=== PATIENT | female | born 1980 | race Caucasian/White ===

== ENCOUNTER → 2016-05-08 | Outpatient (REF) | payer OTHER | END | disposition home or self-care (01) | LOC: M LAB REF 17:11 | PROVIDERS: ATTEND Obstetrics & Gynecology | DX: O10.012 Pre-existing essential hypertension complicating pregnancy, second trimester (principal); Z36 Encounter for antenatal screening of mother; Z3A.00 Weeks of gestation of pregnancy not specified ==

== ENCOUNTER → 2016-05-09 | Outpatient (CLI) | payer OTHER ==
--- NOTE | 2016-05-09 13:45 | REP ---
Clinical: Anatomical evaluation - twin . Comparison: None . Findings: Examination demonstrates diamniotic monochorionic . The placenta is identified posteriorly and grade zero without evidence for placenta previa or abruption. Cervix measures 3.2 cm in length with a closed internal os. Amniotic fluid volume is normal. Gestational age by LMP 18 weeks 2 days with BEN 10/08/2016. Twin A: Fetus identified in cephalic presentation along the maternal right side. motion is appreciated. FHR equals 150 beats per minute. BPD 3.9 cm 17 weeks 5 days HC 14.4 cm 17 weeks 4 days AC 12.2 cm 17 weeks 6 days FL 2.7 cm 18 weeks 2 days HL 2.6 cm 18 weeks 2 days Estimated weight 219 grams (35th percentile). Anatomical assessment demonstrates normal structures including cranium, cavum, facial features, lungs, diaphragm, stomach, cord insertion/three-vessel cord, kidneys/bladder, and extremities. Suboptimal evaluation of the cord plexus, posterior fossa, heart/ventricular outflow tracts and spine noted. Twin B: Fetus identified in cephalic presentation along the maternal left side. motion is appreciated. FHR equals 153 beats per minute. BPD 3.9 cm 17 weeks 6 days HC 14.8 cm 17 weeks 6 days AC 12.5 cm 18 weeks 1 day FL 2.7 cm 18 weeks 2 days HL 2.5 cm 17 weeks 6 days Estimated weight 226 grams ( 40th percentile). Anatomical assessment demonstrates normal structures including cranium, choroid plexus, cavum, cerebellum/posterior fossa, facial features, lungs, diaphragm, stomach, cord insertion/three-vessel cord, and kidneys/bladder. Suboptimal evaluation of the heart/ventricular outflow tracts, spine and extremities noted. Impression: Diamniotic monochorionic twin gestation demonstrating appropriate and concordant growth. Anatomical limitations as described above may warrant followup. Signed by Dejan Galindo MD 05/09/2016 01:36 P
== END ==
LOC: M RAD 12:30
PROVIDERS: ATTEND Obstetrics & Gynecology
DX: Z36 Encounter for antenatal screening of mother (principal); Z3A.17 17 weeks gestation of pregnancy

== ENCOUNTER → 2016-05-29 | Outpatient (CLI) | payer OTHER ==
--- NOTE | 2016-05-29 15:58 | REP ---
TWIN OB ULTRASOUND: Real-time sonographic of gravid uterus is performed utilized transabdominal and endovaginal technique and demonstrates living diamniotic monochorionic twin gestational with estimated gestational age 21 weeks 1 day based on LMP with EDC 10/08/2016. There is concordant growth of both twins. Placenta is posterior and grade 1 with no previa or abruption. Cervix measures 2.5 to 2.8 cm in length transvaginally. Fetus A: BPD 51 mm = 21 weeks 3 days, 59th percentile HC 186 mm = 21 weeks 0 days, 45th percentile AC 168 mm = 21 weeks 6 days, 65th percentile Femur length 37 mm = 21 weeks 5 days, 64th percentile HC/AC ratio 1.11. Estimated weight 441 grams, 66th percentile. heart rate 144 beats per minute. SEEN/GROSSLY UNREMARKABLE Lateral ventricles Yes Posterior fossa Yes Upper lip No Four-chamber heart Yes LVOT Yes RVOT Yes Stomach Yes Cord insertion Yes Three vessel cord Yes Kidneys Yes Bladder Yes Spine No position: Breech on the maternal right side. Amniotic fluid: Appears within normal limits with the deepest pocket of fluid around twin A 3.4 cm. Fetus B: BPD 48 mm = 20 weeks 4 days, 36th percentile HC 183 mm = 20 weeks 5 days, 38th percentile AC 168 mm = 21 weeks 5 days, 64th percentile Femur length 35 mm = 20 weeks 6 days, 45th percentile HC/AC ratio 1.09. Estimated weight 412 grams, 52nd percentile. heart rate 157 beats per minute. position: Breech on the maternal left side. Amniotic fluid: Appears within normal limits with the deepest pocket of fluid around twin B 3.5 cm. SEEN/GROSSLY UNREMARKABLE Lateral ventricles Yes Posterior fossa Yes Upper lip No Four-chamber heart No LVOT No RVOT No Stomach Yes Cord insertion Yes Three vessel cord Yes Kidneys Yes Bladder Yes Spine Yes IMPRESSION: Living intrauterine diamniotic monochorionic twin gestation with appropriate concordant growth as discussed in detail above. Signed by Tom Painting MD 05/29/2016 04:19 P
== END ==
LOC: M RAD 11:17
PROVIDERS: ATTEND Specialist
DX: Z34.82 Encounter for supervision of other normal pregnancy, second trimester (principal)

== ENCOUNTER 2016-06-15 18:28 | Observation (INO) | payer OTHER ==
[~2016-06-15] VITALS: Ht 162.6 cm; Wt 101.0 kg
[2016-06-15] MEDS: SERTRALINE 100 MG TAB PO SCH
[2016-06-15 20:18] LABS: BASO % 0.1 % (0.0-1.0); EOS # 0.1 K/mm3 (0.0-0.50); EOS % 1.1 % (0.0-3.0); LARGE UNSTAINED CELL # 0.3 K/mm3 (0.0-0.4); LARGE UNSTAINED CELL % 2.2 % (0.0-4.0); LYMPH # 2.1 K/mm3 (1.5-4.5); MEAN CORPUSCULAR HEMOGLOBIN 27.1 pg (27.0-33.0); MEAN CORPUSCULAR HGB CONC 32.2 g/dl (32.0-36.5); MEAN CORPUSCULAR VOLUME 84.2 fl (80.0-96.0); MONO # 0.4 K/mm3 (0.0-0.8); MONO % 3.5 % (0.0-5.0); NEUTROPHILS # 8.6 K/mm3 (1.8-7.7); NEUTROPHILS % 75.1 % (36.0-66.0); PLATELET COUNT, AUTOMATED 326 k/mm3 (150-450); RED CELL DISTRIBUTION WIDTH 14.1 % (11.5-14.5); WHITE BLOOD COUNT 11.4 K/mm3 (4.0-10.0)
[2016-06-15 20:29] LABS: INR 0.99
[2016-06-15] MEDS ORDERED: FOLIC ACID 1 MG TAB PO SCH (21:00)
--- NOTE | 2016-06-15 22:00 | REPUSA ---
OBSTETRICAL ULTRASOUND INDICATION: OB screening. FINDINGS: Real-time ultrasound imaging of the twin is noted. The is diamniotic/mo nochorionic in nature. The placenta is anterior, and appears grade 0. Amniotic fluid volume appears grossly within normal limits. Normal movement, breathing movements and tone are not ed. heart rate for fetus A measures 141 bpm. heart rate for fetus B measures 155 bpm. IMPRESSION: 1. Twin A biophysical profile measures 8/8. 2. Twin B biophysical profile measures 8/8.
[2016-06-15] MEDS ORDERED: PRENTAB13 PO (22:31)
[2016-06-15] MEDS ORDERED: FOLI1TAB2 PO (22:31)
[2016-06-15] MEDS ORDERED: ZOLO100T PO (22:31)
[2016-06-15] MEDS ORDERED: IRON50TA PO (22:32)
[2016-06-15] MEDS: BETAMETHASONE SOLUSPAN 6MG/ML INJ 5ML (J0702) IM SCH (23:13)
[2016-06-16 07:44] VITALS: BP 108/53
[2016-06-16] MEDS: FERROUS SULFATE 325MG TAB PO SCH ×2 (09:48→20:15)
[2016-06-16] MEDS: FOLIC ACID 1 MG TAB PO SCH (09:48)
[2016-06-16] MEDS: PRENATAL VITAMIN TAB PO SCH (09:48)
[2016-06-16 09:50] VITALS: BP 90/53
[2016-06-16] MEDS: ACETAMINOPHEN 500 MG TAB PO PRN ×2 (10:21→20:27)
[2016-06-16 16:00] VITALS: BP 112/57
[2016-06-16] MEDS: DOCUSATE SODIUM 100 MG CAP PO SCH ×2 (16:18→20:15)
[2016-06-16 18:16] VITALS: BP 105/54
[2016-06-16 20:15] VITALS: BP 112/58
[2016-06-16] MEDS: SERTRALINE 100 MG TAB PO SCH (20:15)
[2016-06-16] MEDS: BETAMETHASONE SOLUSPAN 6MG/ML INJ 5ML (J0702) IM SCH (22:09)
[2016-06-16 22:20] VITALS: BP 120/56
[2016-06-17 00:10] VITALS: BP 100/48
[2016-06-17 02:10] VITALS: BP 106/53
[2016-06-17 04:55] VITALS: BP 107/53
[2016-06-17 06:00] VITALS: BP 100/51
[2016-06-17] MEDS: DOCUSATE SODIUM 100 MG CAP PO SCH (08:06)
[2016-06-17] MEDS: PRENATAL VITAMIN TAB PO SCH (08:06)
[2016-06-17] MEDS: FERROUS SULFATE 325MG TAB PO SCH (08:07)
[2016-06-17] MEDS: FOLIC ACID 1 MG TAB PO SCH (08:07)
[2016-06-17] MEDS: ACETAMINOPHEN 500 MG TAB PO PRN (08:21)
[2016-06-17 10:00] VITALS: BP 119/58
[2016-06-17] MEDS ORDERED: ACET50TA PO (10:17)
--- NOTE | 2016-06-17 10:38 | DSES ---
DATE OF ADMISSION: 06/15/2016 DATE OF DISCHARGE: 06/17/2016 Emiliana is a 36-year-old 5, para 3-0-1-3 at to 23 and 6/7 weeks gestation with a mono/ Di twin gestation. She was admitted to labor and delivery for an episode of mild bleeding felt to be a chronic placental abruption. Her labs returned normal results. She had a white count of 11.4, hemoglobin 9.1, hematocrit 28.4, platelets 326, PT of 13.2, PTT 26, fibrinogen 515. She has a history of LEEP cone biopsy and prior section. She has had no bleeding for approximately 24 hours. She is betamethasone complete for lung maturity. She does desire discharge today. She also had BPPs of the twins with scores of 8 out of 8 times 2. She has continued to have appropriate heart rate numbers x2 and no evidence of any contractions. She denies contractions, any further bleeding or abdominal pain. PLAN: Plan is to discharge the patient home per consult with Dr. Gonzalez Zhao today. I did review discharge instructions that include access to care, emergency signs and symptoms IN which to report, movement counts, signs and symptoms of labor, worsening placental abruption. She is to follow up at [facility] next week early in the week for routine visit. All the patient's questions have been answered and she does desire discharge. RICKY
== END 2016-06-17 10:50 | disposition home or self-care (01) ==
LOC: M LDO 18:28 → M LDI 23:34 → M OBS 06-17 06:08
PROVIDERS: ADMIT Obstetrics & Gynecology; ATTEND Obstetrics & Gynecology
DX: O30.032 Twin pregnancy, monochorionic/diamniotic, second trimester (principal); O46.92 Antepartum hemorrhage, unspecified, second trimester; Z3A.23 23 weeks gestation of pregnancy
CPT/HCPCS: 36415; 76815; 76819; 80306; 85025; 85384; 85460; 85610; 85730; 96372; J0702

== ENCOUNTER → 2016-06-22 | Outpatient (CLI) | payer OTHER ==
[~2016-06-22] MED LIST: ACET50TA PO; FOLI1TAB2 PO; IRON50TA PO; PRENTAB13 PO; ZOLO100T PO
--- NOTE | 2016-06-22 17:43 | REP ---
TWIN OB ULTRASOUND FOLLOW-UP: 06/22/2016: Clinical history: Incomplete anatomy screen for twin A and twin B. Comparison: Biophysical profile ultrasound 06/15/2016, ultrasound 06/08/2016, 05/09/2016. Based on initial ultrasound she would be 24 weeks 2 days, EDC 10/10/2016. This is a diamniotic, monochorionic twin gestation. There is a posterior grade zero placenta. A closed 2.8 cm long cervix is noted. There is no previa or abruption. TWIN A: Twin A is vertex towards the maternal right and is the presenting twin. Amniotic fluid is visually normal with the largest pocket around this twin 2.8 cm. Composite ultrasound dating today 24 weeks 2 days. Estimated weight 693 grams or 1 pound 8 ounces is 38th percentile. heart activity 157. Anatomy screen today to follow up and try to see the entire spine for twin A and it was again difficult to see in both projections because of position. In all other respects the anatomy screen is completed. TWIN B: Twin B is breech on the maternal left with amniotic fluid also subjectively normal with the largest fluid pocket 2.5 cm. Average ultrasound age today, the fetus is 23 weeks 6 days. Has estimated weight of 654 grams or 1 pound 7 ounces, 28th percentile. This is concordant growth from the previous study. There is a thin membrane between the twins. Twin B anatomy screen, did see a four-chamber heart view today but again the ventricular outflow tracts are not optimally visualized due to breech position. heart 160 and regular. Impression: 1. Twin gestation monochorionic, diamniotic with twin A presenting, towards the right and vertex, twin B towards the maternal left in breech. Normal amniotic fluid. A posterior grade zero placenta without previa or abruption. 2. Concordant normal interval growth. Heart rates normal, 157 twin A, 160 twin B. 3. Cervix 2.8 centimeters long and closed. The spine for twin A is still not completely evaluated and the only remaining structures not fully evaluated on the twin B anatomy screen would be the ventricular outflow tracts. They are not well seen in the breech position. Signed by Matt Dey MD 06/22/2016 05:56 P
== END ==
LOC: M RAD 16:01
PROVIDERS: ATTEND Obstetrics & Gynecology
DX: O30.032 Twin pregnancy, monochorionic/diamniotic, second trimester (principal)

== ENCOUNTER → 2016-07-19 | Outpatient (CLI) | payer OTHER ==
--- NOTE | 2016-07-20 05:32 | REP ---
Clinical: Twin gestation for growth evaluation. Comparison: 06/22/2016 . Findings: Examination demonstrates diamniotic monochorionic advanced twin gestation. Placenta is noted posteriorly and grade I without evidence for placenta previa or abruption. Amniotic fluid volume is normal. Cervix measures 3.6 cm in length and appears closed. No evidence for nuchal cord. Gestational age by LMP at 28 weeks 3 days with BEN 10/10/2016. TWIN A: Twin A is identified in cephalic presentation along the maternal right side. motion is appreciated. Amniotic fluid volume is normal and the deepest pocket measures 4 cm. Gestational age by current measurements 27 weeks 6 days. FHR equals 152 beats per minute. Estimated weight 1091 grams ( 22nd percentile). TWIN B: Twin B is identified in cephalic presentation along the maternal left side. motion is appreciated. Amniotic fluid volume is normal and the deepest pocket measures 5.7 cm. Gestational age by current measurements 28 weeks 0 days. FHR equals 158 beats per minute. Estimated weight 1119 grams ( 27th percentile). Impression: Diamniotic monochorionic twin gestation demonstrating appropriate, concordant growth. No gross abnormalities are identified. Signed by Dejan Galindo MD 07/20/2016 05:23 A
== END ==
LOC: M RAD 09:34
PROVIDERS: ATTEND Obstetrics & Gynecology
DX: Z34.82 Encounter for supervision of other normal pregnancy, second trimester (principal)

== ENCOUNTER → 2016-07-21 | Outpatient (CLI) | payer OTHER ==
--- NOTE | 2016-07-21 19:16 | REP ---
BIOPHYSICAL PROFILE: HISTORY: High risk twin TWIN A: There is vertex presentation on the maternal right. The amniotic fluid is within normal limits. Biophysical profile is 8/8. SD ratio is 3.08. TWIN B: There is vertex presentation on the maternal left. The amniotic fluid is within normal limits. Biophysical profile is 8/8. SD ratio is 3.41. The placenta is posterior and grade 1. There is no placenta previa or abruption. IMPRESSION:Biophysical profile as described above. Signed by Gonzalez Acevedo MD 07/21/2016 07:20 P
== END ==
LOC: M RAD 17:56
PROVIDERS: ATTEND Advanced Practice Midwife
DX: O30.033 Twin pregnancy, monochorionic/diamniotic, third trimester (principal)

== ENCOUNTER → 2016-07-28 | Outpatient (CLI) | payer OTHER ==
--- NOTE | 2016-07-28 15:27 | REP ---
REASON: Obtain biophysical profile twin gestation. Twin A is in the cephalic presentation on the maternal right. Amniotic fluid is subjectively normal. Doppler interrogation of the umbilical artery shows an A/B ratio slightly below the normal range at 3.16. The biophysical profile score is 2 for breathing, 2 for movement, 2 for tone, and 2 for amniotic fluid volume giving a sum total of 8 out of 8. Doppler interrogation A heart rate shows a heart rate of 150 beats per minute. Fetus B is in the transverse head to the maternal left position. Again, the amniotic fluid is subjectively normal. And again, the biophysical profile is 8 out of 8. Doppler interrogation of umbilical artery of fetus B is 4.15 which is within the normal range. Doppler interrogation of B's heart rate is 153 beats per minute. The cervix measures 4 cm in length and is closed. IMPRESSION: Twin gestation as described above with biophysical profile. Signed by Amos Mercado DO 07/28/2016 05:02 P
== END ==
LOC: M RAD 10:56
PROVIDERS: ATTEND Advanced Practice Midwife
DX: O30.033 Twin pregnancy, monochorionic/diamniotic, third trimester (principal)

== ENCOUNTER → 2016-08-04 | Outpatient (CLI) | payer OTHER ==
--- NOTE | 2016-08-04 12:22 | REP ---
REASON: Followup biophysical profile of twin gestation. Fetus A has a biophysical scoring 2 for breathing, 2 for movement, 2 for tone and 2 for amniotic fluid volume giving a sum total of 8 out of 8. Fetus B has a biophysical scoring 2 for breathing, 2 for movement, 2 for tone and 2 for amniotic fluid volume giving a sum total of 8 out of 8. Doppler interrogation of A heart rate shows a heart rate of 144 beats per minute and Doppler interrogation of B heart rate shows a heart rate of 141 beats per minute. Doppler interrogation of A umbilical cord shows an AB ratio of 3.79 and fetus B an AB ratio of 3.28. The subjective amniotic fluid volume is normal bilaterally. IMPRESSION: biophysical profile has described above. Signed by Amos Mercado DO 08/04/2016 02:46 P
== END ==
LOC: M RAD 10:07
PROVIDERS: ATTEND Advanced Practice Midwife
DX: O30.033 Twin pregnancy, monochorionic/diamniotic, third trimester (principal)

== ENCOUNTER → 2016-08-11 | Outpatient (CLI) | payer OTHER ==
--- NOTE | 2016-08-11 12:45 | REP ---
Clinical: Twin for biophysical profile (BPP). Technique: Transabdominal obstetrical ultrasound with color Doppler evaluation. Comparison: 08/04/2016. Findings: Advanced diamniotic monochorionic twin again noted. Placenta is identified posteriorly and grade 1 without evidence for placenta previa or abruption. Cervix measures 3.4 cm in length and appears closed. Concordant growth is appreciated. Gestational age by LMP 31 weeks 5 days with estimated date of delivery 10/08/2016. TWIN A: Cephalic presentation along the maternal right side. motion appreciated. Amniotic fluid volume is normal; deepest pocket measures 3.4 cm. F H R equals 136 beats per minute. Estimated weight by measurements 1892 grams (53rd percentile). Biophysical profile score equals 8/8. TWIN B: Breech presentation along the maternal left side. motion appreciated. Amniotic fluid volume is normal; deepest pocket measures 2.4 cm. F H R equals 136 beats per minute. Estimated weight by measurements 1824 grams (43rd percentile). Biophysical profile score equals 8/8. Impression: Diamniotic monochorionic twin gestation demonstrating concordant growth. Biophysical profile score for both twins 8/8. Signed by Dejan Galindo MD 08/11/2016 12:36 P
== END ==
LOC: M RAD 11:34
PROVIDERS: ATTEND Advanced Practice Midwife
DX: O30.033 Twin pregnancy, monochorionic/diamniotic, third trimester (principal)

== ENCOUNTER → 2016-08-18 | Outpatient (CLI) | payer OTHER ==
--- NOTE | 2016-08-18 12:55 | REP ---
Clinical: Twin gestation for biophysical profile. Technique: Transabdominal examination with color Doppler evaluation. Findings: Known advanced diamniotic monochorionic twin gestation. Placenta is identified posteriorly and grade II without evidence for placenta previa or abruption. Cervix measures 3.4 cm in length. Twin A: Cephalic presentation along the maternal right side. heart rate equals 147 beats per minute. Biophysical profile score equals 8/8. Amniotic fluid volume normal and the deepest pocket measures 7.4 cm. Twin B: Transverse presentation along the maternal left side. heart rate equals 147 beats per minute. Biophysical profile score equals 8/8. Amniotic fluid volume normal and the deepest pocket measures 8.4 cm. Impression: Twin gestation. Biophysical profile score equals 8/8, and amniotic fluid volume normal. Signed by Dejan Galindo MD 08/18/2016 12:47 P
== END ==
LOC: M RAD 11:14
PROVIDERS: ATTEND Advanced Practice Midwife
DX: O30.033 Twin pregnancy, monochorionic/diamniotic, third trimester (principal)

== ENCOUNTER → 2016-08-25 | Outpatient (CLI) | payer OTHER ==
--- NOTE | 2016-08-25 12:52 | REP ---
REASON: Twin gestation biophysical profile. There is a known diamniotic monochorionic twin gestation with the placentas posterior and grade 2 without evidence of previa. Twin A is in the vertex presentation and has subjectively normal amniotic fluid. The biophysical profile is 8 out of 8 for twin A with an A/B ratio slightly below the normal range at 2.72. The heart rate of A is 139 beats per minute. Twin B is seen in the breech presentation on the left with a normal subjective amniotic fluid surrounding it. The biophysical profile of twin B scores 8 out of 8. The A/B ratio of the umbilical cord is slightly slow at 2.92. The heart rate of twin B is 139 beats per minute. IMPRESSION: Twin gestation and biophysical profiles as described above. Signed by Amos Mercado DO 08/25/2016 03:22 P
== END ==
LOC: M RAD 11:31
PROVIDERS: ATTEND Advanced Practice Midwife
DX: O30.033 Twin pregnancy, monochorionic/diamniotic, third trimester (principal)

== ENCOUNTER → 2016-09-01 | Outpatient (CLI) | payer OTHER ==
--- NOTE | 2016-09-01 14:03 | REP ---
Sonography: Twin gestation and growth study. Biophysical profile amniotic fluid. High risk. Findings: Scanning demonstrates a diamniotic monochorionic twin gestation. The placenta is posterior grade 2 without evidence of previa or abruption. There has been concordant appropriate interval growth. Twin A is cephalic along maternal right. Twin B is also cephalic along maternal left. Amniotic fluid is subjectively normal around both twins. The deepest pocket surrounding twin A is 7.4 cm and that surrounding twin B is 7.8 cm. No extrauterine abnormalities observed. Exam quality is inhibited by crowding and advanced gestational age. Biometry chart fetus A: BPD 8.8 cm = 35 weeks 5 days Head circumference 31.8 cm = 35 weeks 6 days Abdominal circumference 30.0 cm = 34 weeks 0 days Femur length 6.7 cm = 34 weeks 4 days Humeral length 6.1 cm = 35 weeks 0 days HC/AC ratio normal 1.06, cephalic index normal 0.78, estimated weight 2442 grams, 5 pounds 6 ounces, 44th percentile. HARIS normal 7.4 cm. Biophysical profile score 8 out of a possible 8. S/D ratio in the umbilical cord artery by Doppler normal 2.48. heart rate 157 beats per minute. Biometry chart twin B: BPD 0.3 cm = 33 weeks 4 days Head circumference 31.3 cm = 35 weeks 1 day Abdominal circumference 30.5 cm = 34 weeks 3 days femur length 6.6 cm = 34 weeks 0 days Humeral length 6.0 cm = 35 weeks 0 days HC/AC ratio normal 1.03, cephalic index normal 0.73, estimated weight 2392 grams, 5 pounds 4 ounces, 40th percentile. HARIS 7.8 cm. heart rate 147 beats per minute. Biophysical profile score 8 out of a possible 8. S/D ratio in the umbilical cord artery by Doppler normal 2.60. Impression: Viable twin intrauterine gestation at 34 weeks 3 days by comparison sonography. BEN by prior sonography October 10, 2016. There is concordant and appropriate interval growth. Signed by Sohan Bustillos MD 09/01/2016 04:27 P
== END ==
LOC: M RAD 11:18
PROVIDERS: ATTEND Advanced Practice Midwife
DX: O30.033 Twin pregnancy, monochorionic/diamniotic, third trimester (principal)

== ENCOUNTER 2016-09-05 04:45 | Inpatient (IN) | payer OTHER ==
[~2016-09-05] VITALS: Ht 160 cm; Wt 257.0 kg
[2016-09-05 04:59] VITALS: BP 133/76
[2016-09-05] MEDS ORDERED: PENICILLIN G POTASSIUM IV 5 MU in D5W MINI-BAG PLUS 100 ML IV STA (05:23)
[2016-09-05] MEDS ORDERED: LACTATED RINGER'S 1000 ML IV STA ×2 (05:23→05:51)
[2016-09-05] MEDS ORDERED: LR 1,000 ML IV SCH ×2 (05:23→05:51)
[2016-09-05] MEDS ORDERED: BICITRA 30ML SOLN UDC PO ONE (06:00)
[2016-09-05] MEDS ORDERED: BUTORPHANOL 2 MG/ML INJ (J0595) IV ONE (06:00)
[2016-09-05] MEDS ORDERED: PROMETHAZINE INJ 25 MG/ML VIAL (J2550) IV ONE (06:00)
[2016-09-05 06:21] LABS: MEAN CORPUSCULAR HEMOGLOBIN 29.3 pg (27.0-33.0); MEAN CORPUSCULAR HGB CONC 32.6 g/dl (32.0-36.5); MEAN CORPUSCULAR VOLUME 89.7 fl (80.0-96.0); RED CELL DISTRIBUTION WIDTH 18.8 % (11.5-14.5); WHITE BLOOD COUNT 11.4 K/mm3 (4.0-10.0)
--- NOTE | 2016-09-05 08:55 | HPE ---
DATE OF ADMISSION: 09/05/2016 A 36-year-old 5, para 3-0-1-3, estimated date of delivery 10/08/2016, presents at 35 weeks 1 day with reports of spontaneous rupture of membranes, clear fluid, at 0345, followed by onset of contractions. Denies bleeding. Known twin gestation. Reports good activity. Last normal menstrual period 01/02/2016 for expected date of delivery (BEN) of 10/08/2016. Sonogram at 13 weeks confirmed her date and a monochorionic, diamniotic (mono, di) gestation. Serial growth sonograms have shown concordant appropriate growth. Last was performed on 09/01/2016. Twin A estimated weight 2442 grams, 44th percentile. Twin B, estimated weight 2392 grams, 40th percentile, both with adequate amniotic fluid index (HARIS). Biophysicals were 8/8 for both. OBSTETRICAL HISTORY 1997 elective termination. September 2004, primary at 40 weeks' plus gestation. heart indication, viable female 10 pounds 10 ounces. November 2007, repeat at 39 weeks, viable female 7 pounds 9 ounces. November 2012, repeat at 38 weeks, viable female 8 pounds 3 ounces. No known drug allergies. MEDICAL-SURGICAL: Hypothyroid prior to the , euthyroid with . Multiple cervical biopsies. Brain surgery for Arnold-Chiari malformation. Depression. Anxiety. FAMILY HISTORY: Diabetes, hypertension, and heart disease. SOCIAL HISTORY: . Father of the baby and the family present and supportive. Denies tobacco, alcohol, or drugs. OBJECTIVE: Prepregnancy weight 208, total weight gain 48 pounds. A+, antibody negative, rubella immune, [facility] ([facility]), hepatitis B, hepatitis C, HIV, gonorrhea, and chlamydia all negative. Thyroid studies within normal limits. 1-hour glucose 108. Anemia was treated with iron and folate, and group B Streptococcus is unknown. Vital signs are stable. Heart rate is regular. Respirations are easy. She is breathing with contractions. Abdomen is soft, gravid. Bedside sonogram confirms viable twin gestation, vertex-vertex presentation, contractions every 2-4 minute times 45-60 seconds and moderate. Twin A is 145 with moderate variability and accelerations. Twin B is 155, moderate variability and accelerations. Sterile speculum examination: Pooling of clear fluid, positive Nitrazine, positive fern. Sterile vaginal examination: Fingertip dilated, 90% effaced and -3 station. ASSESSMENT: Multiparous at term. premature rupture of membranes. Twin gestation. Category 1 tracing times two. Previous times three. PLAN: Admit. Dr. Chen. intensive care unit (NICU), operating room (OR), and anesthesia staff are notified.
== END 2016-09-05 08:20 | disposition short-term general hospital (02) | DRG 781 ==
LOC: M LDO 04:45 → M LDI 05:13
PROVIDERS: ADMIT Obstetrics & Gynecology; ATTEND Obstetrics & Gynecology
DX: O42.013 Preterm premature rupture of membranes, onset of labor within 24 hours of rupture, third trimester (principal); O99.013 Anemia complicating pregnancy, third trimester; O30.033 Twin pregnancy, monochorionic/diamniotic, third trimester; Z3A.35 35 weeks gestation of pregnancy; O34.219 Maternal care for unspecified type scar from previous cesarean delivery; D64.9 Anemia, unspecified; Z79.899 Other long term (current) drug therapy; Z83.3 Family history of diabetes mellitus; Z82.49 Family history of ischemic heart disease and other diseases of the circulatory system

== ENCOUNTER → 2017-05-29 | Outpatient (REF) | payer OTHER | LOC: M LAB REF 17:50 | DX: Z12.4 Encounter for screening for malignant neoplasm of cervix (principal) | CPT/HCPCS: G0123 ==

== ENCOUNTER → 2017-06-11 | Outpatient (CLI) | payer OTHER ==
[~2017-06-11] MED LIST changes: -ACET50TA PO; +ACETAMINOPHEN 325 MG TAB As Ordered; -FOLI1TAB2 PO; -IRON50TA PO; -PRENTAB13 PO; -ZOLO100T PO
[2017-06-11 13:07] LABS: CSF MONONUCLEAR CELL % 66.7 % (0-0); CSF POLYMORPHONUCLEAR CELL % 33.3 % (0-0); CSF RBC < 2 10^3/uL (<2)
[2017-06-11 13:14] LABS: COLOR, CSF COLORLESS (COLORLESS); CSF TUBE# CELL CNT TUBE 1; CSF WBC 6 /uL (0-10)
[2017-06-11 13:15] LABS: APPEARANCE, CSF CLEAR (CLEAR)
[2017-06-11 13:29] LABS: CSF TUBE# GLU TUBE 3; CSF TUBE# TP TUBE 3; GLUCOSE CSF 56 MG/DL (40-75); TOTAL PROTEIN,CSF 24.2 MG/DL (15-45)
[2017-06-11 14:14] LABS: CSF GROUP B STREP NEGATIVE (NEGATIVE); CSF H. INFLUENZA NEGATIVE (NEGATIVE); CSF N MENINGITIDIS ACYW135 NEGATIVE (NEGATIVE); CSF STREP PNUEMO NEGATIVE (NEGATIVE); CSF TUBE# BACT AG TUBE 2
[2017-06-14 00:06] LABS: IMMUNOGLOBULIN G CSF 2.8 mg/dL (0.0-8.6)
[2017-06-15 11:41] LABS: OLIGOCLONAL BANDS, CSF Faint bands detected (No Bands)
== END ==
LOC: M RADPRO 10:10
DX: Q07.00 Arnold-Chiari syndrome without spina bifida or hydrocephalus (principal); Z79.899 Other long term (current) drug therapy
CPT/HCPCS: 62270

== ENCOUNTER → 2017-06-18 | Outpatient (CLI) | payer OTHER ==
[2017-06-18 15:52] LABS: BASO % 0.3 % (0.0-1.0); EOS # 0.1 10^3/uL (0.0-0.50); EOS % 1.4 % (0.0-3.0); HEMATOCRIT 40.1 % (36.0-47.0); HEMOGLOBIN 12.7 g/dl (12.0-16.0); IMMATURE GRANULOCYTE % 0.3 % (0-3.0); LYMPH # 2.9 10^3/uL (1.5-4.5); LYMPH % 30.6 % (24.0-44.0); MEAN CORPUSCULAR HEMOGLOBIN 27.9 pg (27.0-33.0); MEAN CORPUSCULAR HGB CONC 31.7 g/dl (32.0-36.5); MEAN CORPUSCULAR VOLUME 87.9 fl (80.0-96.0); MONO # 0.4 10^3/uL (0.0-0.8); MONO % 4.6 % (0.0-5.0); NEUTROPHILS % 62.8 % (36.0-66.0); PLATELET COUNT, AUTOMATED 332 10^3/uL (150-450); RED BLOOD COUNT 4.56 10^6/uL (4.00-5.40); RED CELL DISTRIBUTION WIDTH 14.5 % (11.5-14.5); WHITE BLOOD COUNT 9.6 10^3/uL (4.0-10.0)
[2017-06-18 16:11] LABS: COLLAGEN EPINEPHRINE 120 SECONDS (74-162)
[2017-06-18 16:26] LABS: INR 0.99; PROTHROMBIN TIME 13.2 SECONDS (12.4-14.5)
[2017-06-18 16:30] LABS: ALBUMIN 3.7 GM/DL (3.2-5.2); ALBUMIN/GLOBULIN RATIO 0.86 (1.00-1.93); ALKALINE PHOSPHATASE 149 U/L (45-117); ALT/SGPT 29 U/L (12-78); ANION GAP 6 MEQ/L (8-16); AST/SGOT 14 U/L (7-37); BILIRUBIN,TOTAL 0.2 MG/DL (0.2-1.0); BLOOD UREA NITROGEN 12 MG/DL (7-18); CALCIUM LEVEL 8.9 MG/DL (8.5-10.1); CARBON DIOXIDE LEVEL 24 MEQ/L (21-32); CHLORIDE LEVEL 111 MEQ/L (98-107); CREATININE FOR GFR 0.75 MG/DL (0.55-1.30); GLOMERULAR FILTRATION RATE > 60.0 (>60); GLUCOSE, FASTING 95 MG/DL (70-100); SODIUM LEVEL 141 MEQ/L (136-145)
== END ==
LOC: M LAB 15:10
DX: Z01.818 Encounter for other preprocedural examination (principal)

== ENCOUNTER → 2017-12-14 | Outpatient (CLI) | payer OTHER ==
[2017-12-14 18:34] LABS: BASO % 0.4 % (0.0-1.0); EOS # 0.1 10^3/uL (0.0-0.50); EOS % 1.4 % (0.0-3.0); HEMATOCRIT 41.7 % (36.0-47.0); HEMOGLOBIN 13.3 g/dl (12.0-15.5); IMMATURE GRANULOCYTE % 0.4 % (0-3.0); LYMPH # 2.8 10^3/uL (1.5-4.5); LYMPH % 32.1 % (24.0-44.0); MEAN CORPUSCULAR HEMOGLOBIN 29.2 pg (27.0-33.0); MEAN CORPUSCULAR HGB CONC 31.9 g/dl (32.0-36.5); MEAN CORPUSCULAR VOLUME 91.4 fl (80.0-96.0); MONO # 0.4 10^3/uL (0.0-0.8); MONO % 4.7 % (0.0-5.0); NEUTROPHILS # 5.2 10^3/uL (1.8-7.7); PLATELET COUNT, AUTOMATED 327 10^3/uL (150-450); RED BLOOD COUNT 4.56 10^6/uL (4.00-5.40); RED CELL DISTRIBUTION WIDTH 12.8 % (11.5-14.5); WHITE BLOOD COUNT 8.6 10^3/uL (4.0-10.0)
[2017-12-14 18:52] LABS: COLLAGEN EPINEPHRINE 109 SECONDS (74-162)
[2017-12-14 18:55] LABS: ALBUMIN/GLOBULIN RATIO 1.05 (1.00-1.93); ALKALINE PHOSPHATASE 128 U/L (45-117); ALT/SGPT 24 U/L (12-78); ANION GAP 9 MEQ/L (8-16); AST/SGOT 16 U/L (7-37); BILIRUBIN,TOTAL 0.2 MG/DL (0.2-1.0); BLOOD UREA NITROGEN 13 MG/DL (7-18); CALCIUM LEVEL 9.5 MG/DL (8.5-10.1); CARBON DIOXIDE LEVEL 22 MEQ/L (21-32); CHLORIDE LEVEL 110 MEQ/L (98-107); CREATININE FOR GFR 0.95 MG/DL (0.55-1.30); GLOMERULAR FILTRATION RATE > 60.0 (>60); GLUCOSE, FASTING 89 MG/DL (70-100); POTASSIUM SERUM 4.6 MEQ/L (3.5-5.1); SODIUM LEVEL 141 MEQ/L (136-145); TOTAL PROTEIN 7.8 GM/DL (6.4-8.2)
[2017-12-14 19:51] LABS: INR 0.97
== END ==
LOC: M LAB 17:44
DX: Z01.818 Encounter for other preprocedural examination (principal); R94.31 Abnormal electrocardiogram [ECG] [EKG]
CPT/HCPCS: 71046

== ENCOUNTER 2017-12-26 09:51 | Day surgery (SDC) | payer OTHER ==
[~2017-12-26 09:51] MED LIST changes: -ACETAMINOPHEN 325 MG TAB As Ordered; +LIDOCAINE 1% MDV 20ML VIAL SQ
[2017-12-26] MEDS: LR 1,000 ML IV (11:12)
[2017-12-26] MEDS ORDERED: VANCOMYCIN 1000 MG/20 ML VIAL (J3370) As Ordered (12:06)
[2017-12-26] MEDS: VANCOMYCIN HCL 1,000 MG, VIAL MATE ADAPTER 1 EACH in D5W 250 ML IV (12:15)
[2017-12-26] MEDS: LIDOCAINE 1% SDV INJ 30 ML VIAL As Ordered (12:19)
[2017-12-26] MEDS: SCOPOLAMINE 1MG TRANSDERMAL PATCH TOP (12:21)
[2017-12-26] MEDS ORDERED: ROCURONIUM BROMIDE 50 MG/5 ML VIAL As Ordered (13:40)
[2017-12-26] MEDS ORDERED: fentaNYL 100 MCG/2 ML INJECTION (J3010) As Ordered ×2 (13:40→14:29)
[2017-12-26] MEDS ORDERED: PROPOFOL 200 MG/20 ML VIAL As Ordered (13:40)
[2017-12-26] MEDS ORDERED: ONDANSETRON 4MG/2ML VIAL (J2405) As Ordered (13:40)
[2017-12-26] MEDS ORDERED: MIDAZOLAM INJ 2 MG/2 ML VIAL (J2250) As Ordered (13:40)
[2017-12-26] MEDS ORDERED: LIDOCAINE 2% INJ 100 MG/5 ML SDV (FOR ANES.) As Ordered (13:40)
[2017-12-26] MEDS ORDERED: dexameTHASONE 4 MG/ML 1ML VIAL (J1100) As Ordered (13:40)
[2017-12-26] MEDS ORDERED: GLYCOPYRROLATE INJ 0.2 MG/ML 2 ML VIAL As Ordered ×2 (13:56)
[2017-12-26] MEDS ORDERED: NEOSTIGMINE 10 MG/10 ML VIAL (J2710) As Ordered (13:56)
[2017-12-26] MEDS: methylPREDNISolone SUSP 40 MG/ML (DEPO-medrol) VIAL (J1030) As Ordered (14:04)
[2017-12-26] MEDS ORDERED: NORCO, ANEXSIA 5/325MG TABLET (HYDROcodone/ACETAMINOPHEN) As Ordered (14:29)
[2017-12-26] MEDS: fentaNYL 100 MCG/2 ML INJECTION (J3010) IV ×4 (14:30→14:45)
[2017-12-26] MEDS: NORCO, ANEXSIA 5/325MG TABLET (HYDROcodone/ACETAMINOPHEN) PO ×2 (14:30→15:05)
[2017-12-26] MEDS ORDERED: NORCO, ANEXSIA 5/325MG TABLET (HYDROcodone/ACETAMINOPHEN) PO (14:45)
[2017-12-26] MEDS ORDERED: LR 1,000 ML IV (15:00)
[2017-12-26] MEDS ORDERED: ONDANSETRON 4MG/2ML VIAL (J2405) IV (15:00)
== END 2017-12-26 15:55 | disposition home or self-care (01) ==
LOC: M SDC 09:51
DX: G56.02 Carpal tunnel syndrome, left upper limb (principal); E78.2 Mixed hyperlipidemia; E03.9 Hypothyroidism, unspecified; I10 Essential (primary) hypertension; R09.81 Nasal congestion; E04.9 Nontoxic goiter, unspecified; R16.1 Splenomegaly, not elsewhere classified; D64.9 Anemia, unspecified; M12.9 Arthropathy, unspecified; F41.9 Anxiety disorder, unspecified; F32.9 Major depressive disorder, single episode, unspecified; G43.909 Migraine, unspecified, not intractable, without status migrainosus; F43.10 Post-traumatic stress disorder, unspecified; A49.02 Methicillin resistant Staphylococcus aureus infection, unspecified site; R06.83 Snoring; E66.9 Obesity, unspecified; Z68.37 Body mass index [BMI] 37.0-37.9, adult; Z79.899 Other long term (current) drug therapy; Z87.820 Personal history of traumatic brain injury; Z98.51 Tubal ligation status; Z87.442 Personal history of urinary calculi; Z87.798 Personal history of other (corrected) congenital malformations
CPT/HCPCS: 64721

== ENCOUNTER → 2018-02-15 | Outpatient (CLI) | payer OTHER | LOC: M RAD 16:27 | DX: M47.896 Other spondylosis, lumbar region (principal) | CPT/HCPCS: 72114 ==